=== PATIENT | male | born 1965 | race Caucasian/White ===

== ENCOUNTER → 2018-04-10 | Emergency (ER) | payer MEDICAID ==
[~2018-04-10] VITALS: Ht 180.3 cm; Wt 102.7 kg
[~2018-04-10] MED LIST: ACET-2615 PO; ALB0.5UD IH; GUAI600T45 PO; IBUP-1984 PO; LEVO750T21 PO; LORazepam 2 mg/ml vial IV ONE; TAM75C PO; acetaminophen 325mg tablet PO ONE; ketorolac trometh. 30mg/ml inj. IV ONE; levoFLOXACIN-Levaquin 750MG/D5 150 ML IV STA; normal saline 1000ML IV soln IV ONE; oseltamivir phos 75mg capsule PO ONE
[2018-04-10 18:41] LABS: CLARITY,URINE SLIGHTLY CLOUDY (Clear); COLOR,URINE YELLOW (Yellow); GLUCOSE, URINE NEGATIVE (Neg); KETONES,URINE NEGATIVE (Neg); LEUKOCYTE ESTERASE ,URINE TRACE (Neg); NITRITES, URINE NEGATIVE (Neg); OCCULT BLOOD,URINE NEGATIVE (Neg); PH,URINE 5.5 (4.8-8.0); PROTEIN,URINE NEGATIVE (Neg); UROBILINOGEN,URINE 0.2 E.U/dL (0.2-1.0)
[2018-04-10 18:47] LABS: UA COLLECTION TYPE VOIDED
[2018-04-10 18:48] LABS: HYALINE CASTS 0-3 /LPF (NEGATIVE); MUCUS STRANDS FEW /LPF (Neg); SQUAMOUS EPITHELIAL CELL,UR FEW /LPF (FEW)
[2018-04-10 18:49] LABS: BACTERIA,URINE FEW /HPF (Neg); RBC,URINE 0-2 /HPF (0-2)
[2018-04-10 19:15] LABS: BASOPHILS % (AUTO) 0.4 % (0-1); EOSINOPHILS % (AUTO) 0.4 % (0-6); HEMATOCRIT 43.4 % (42.0-52.0); HEMOGLOBIN 14.2 g/dl (14.0-17.9); LYMPHOCYTES # (AUTO) 0.8 X10'3 (1.1-4.8); LYMPHOCYTES % (AUTO) 9.7 % (21-51); MEAN CORPUSCULAR HEMOGLOBIN 30.3 PG (27.0-31.0); MEAN CORPUSCULAR HGB CONC 32.8 % (33.0-36.5); MEAN CORPUSCULAR VOLUME 92.5 FL (78-98); MEAN PLATELET VOLUME 7.2 FL (7.4-10.4); MONOCYTES # (AUTO) 0.8 X10'3 (0-0.9); MONOCYTES % (AUTO) 9.4 % (2-12); NEUTROPHILS # (AUTO) 6.8 X10'3 (1.8-7.7); NEUTROPHILS % (AUTO) 80.1 % (42-75); PLATELET COUNT 201 X10'3 (140-440); RED BLOOD COUNT 4.69 X10'6 (4.70-6.10); RED CELL DISTRIBUTION WIDTH 12.2 % (11.5-14.5); WHITE BLOOD COUNT 8.4 X10'3 (4.5-11.0)
[2018-04-10 19:17] LABS: PROTHROMBIN TIME 10.3 SECONDS (9.0-12.0)
[2018-04-10 19:18] LABS: PARTIAL THROMBOPLASTIN TIME 28 SECONDS (22-32)
[2018-04-10 19:35] LABS: ALANINE AMINOTRANSFERASE 39 U/L (12-78); ALBUMIN 3.9 G/DL (3.4-5.0); ALKALINE PHOSPHATASE 64 IU/L (46-116); ANION GAP 13 (8-16); ASPARTATE AMINO TRANSFERASE 24 U/L (10-37); BILIRUBIN,TOTAL 0.4 MG/DL (0.1-1.0); BLOOD UREA NITROGEN 19 MG/DL (7-18); BUN/CREATININE RATIO 14.6 (5.4-32.0); CALCIUM 8.6 MG/DL (8.5-10.1); CHLORIDE 100 MMOL/L (99-107); GLUCOSE 90 MG/DL (70-104); POTASSIUM 3.9 MMOL/L (3.5-5.1); SODIUM 136 MMOL/L (135-145); TOTAL PROTEIN 7.9 G/DL (6.4-8.2); eGFR 58 ML/MIN
[2018-04-10 21:39] VITALS: BP 109/71
== END | disposition home or self-care (01) ==
LOC: ER 17:53
DX: J09.X2 Influenza due to identified novel influenza A virus with other respiratory manifestations (principal); F15.90 Other stimulant use, unspecified, uncomplicated; Z98.890 Other specified postprocedural states; Z79.899 Other long term (current) drug therapy
CPT/HCPCS: 36415; 71045; 80053; 81001; 83605; 83880; 84145; 84484; 85025; 85610; 85730; 87040; 87088; 87502; 87503; 93005; 96365; 96366; 96375; 99284; J1885; J1956; J2060

== ENCOUNTER 2019-10-13 14:23 | Emergency (ER) | payer MEDICAID ==
[~2019-10-13] VITALS: Ht 180.3 cm; Wt 97.0 kg
[~2019-10-13 14:23] MED LIST changes: -ACET-2615 PO; -IBUP-1984 PO; -LORazepam 2 mg/ml vial IV ONE; -TAM75C PO; -acetaminophen 325mg tablet PO ONE; -ketorolac trometh. 30mg/ml inj. IV ONE; -levoFLOXACIN-Levaquin 750MG/D5 150 ML IV STA; -normal saline 1000ML IV soln IV ONE; -oseltamivir phos 75mg capsule PO ONE
[2019-10-13] MEDS ORDERED: methylPREDNISolone sod succ 125mg/2ml vial IV ONE (15:00)
[2019-10-13] MEDS ORDERED: ipratropium/albuterol 3ml nebule NEB ONE (15:00)
[2019-10-13] MEDS ORDERED: normal saline 1000ML IV soln IVB ONE (15:00)
[2019-10-13 16:08] LABS: BASOPHILS # (AUTO) 0.1 X10'3 (0-0.2); BASOPHILS % (AUTO) 0.5 % (0-1); EOSINOPHILS # (AUTO) 0.3 X10'3 (0-0.9); EOSINOPHILS % (AUTO) 1.6 % (0-6); HEMATOCRIT 44.6 % (42.0-52.0); HEMOGLOBIN 14.9 g/dl (14.0-17.9); LYMPHOCYTES # (AUTO) 1.8 X10'3 (1.1-4.8); LYMPHOCYTES % (AUTO) 11.8 % (21-51); MEAN CORPUSCULAR HEMOGLOBIN 31.5 PG (27.0-31.0); MEAN CORPUSCULAR HGB CONC 33.5 g/dL (33.0-36.5); MONOCYTES # (AUTO) 1.3 X10'3 (0-0.9); MONOCYTES % (AUTO) 8.3 % (2-12); NEUTROPHILS # (AUTO) 12.1 X10'3 (1.8-7.7); NEUTROPHILS % (AUTO) 77.8 % (42-75); PLATELET COUNT 218 X10'3 (140-440); RED BLOOD COUNT 4.75 X10'6 (4.70-6.10); WHITE BLOOD COUNT 15.5 X10'3 (4.5-11.0)
[2019-10-13] MEDS ORDERED: NO HOME MEDS (16:08)
[2019-10-13 16:21] LABS: PARTIAL THROMBOPLASTIN TIME 30 SECONDS (22-32)
[2019-10-13 16:33] LABS: ALANINE AMINOTRANSFERASE 28 U/L (12-78); ALBUMIN 3.3 G/DL (3.4-5.0); ALBUMIN/GLOBULIN RATIO 0.8 (1.1-1.5); ALKALINE PHOSPHATASE 57 IU/L (46-116); ANION GAP 8 (8-16); ASPARTATE AMINO TRANSFERASE 18 U/L (10-37); BILIRUBIN,TOTAL 0.5 MG/DL (0.1-1.0); BLOOD UREA NITROGEN 15 MG/DL (7-18); BUN/CREATININE RATIO 12.2 (5.4-32.0); CALCIUM 8.4 MG/DL (8.5-10.1); CHLORIDE 104 MMOL/L (99-107); CREATININE 1.23 MG/DL (0.60-1.10); GLUCOSE 81 MG/DL (70-104); POTASSIUM 4.1 MMOL/L (3.5-5.1); SODIUM 138 MMOL/L (135-145); TOTAL CARBON DIOXIDE 25.7 MMOL/L (24-32); TOTAL PROTEIN 7.4 G/DL (6.4-8.2); eGFR 61 ML/MIN
--- NOTE | 2019-10-13 17:45 | NUR ---
went to pt room to draw 2nd troponin and collect urine sample and pt iv was finished ,pt was trying to come out of room educated on precaution ,pt looked upset and said am done with this bullshit.pt iv was out when asked what happend ,pt said it came out ,pt said he want to leave.
--- NOTE | 2019-10-13 17:48 | NUR ---
notified dr gallego regarding pt want to leave ,dr gallego spoke to pt and pt agree to stay untill his trop is drawn and covid swab is collected,pt is iv drug user and hard to stick ,matthew clayton ready to try to collect trop sample.
[2019-10-13 18:11] LABS: CLARITY,URINE SLIGHTLY CLOUDY (Clear); COLOR,URINE STRAW (Yellow); GLUCOSE, URINE NEGATIVE (Neg); KETONES,URINE NEGATIVE (Neg); LEUKOCYTE ESTERASE ,URINE NEGATIVE (Neg); NITRITES, URINE NEGATIVE (Neg); OCCULT BLOOD,URINE NEGATIVE (Neg); PROTEIN,URINE NEGATIVE (Neg); UA COLLECTION TYPE VOIDED; UROBILINOGEN,URINE 0.2 E.U/dL (0.2-1.0)
[2019-10-13 18:17] LABS: MUCUS STRANDS NONE SEEN /LPF (Neg); SQUAMOUS EPITHELIAL CELL,UR MANY /LPF (FEW); TRANSITIONAL EPI CELLS,URINE FEW /HPF
[2019-10-13 18:19] LABS: WBC,URINE 0-4 /HPF (0-4)
[2019-10-13 18:21] LABS: BACTERIA,URINE NONE SEEN /HPF (Neg)
[2019-10-13 18:22] LABS: TRICHOMONAS,URINE FEW /HPF (NEGATIVE)
[2019-10-13 19:06] VITALS: BP 98/57
== END 2019-10-13 19:07 | disposition home or self-care (01) ==
LOC: ER 14:23
DX: R05 Cough (principal); R07.89 Other chest pain; J45.909 Unspecified asthma, uncomplicated; F15.90 Other stimulant use, unspecified, uncomplicated; Z98.890 Other specified postprocedural states; Z72.89 Other problems related to lifestyle; Z20.828 Contact with and (suspected) exposure to other viral communicable diseases
CPT/HCPCS: 36415; 71045; 80053; 81001; 83605; 84145; 84484; 85025; 85610; 85730; 87040; 93005; 94640; 96374; 99285; J2930; J7030; U0003; 94760